=== PATIENT | male | born 1965 | race Two or more races ===

== ENCOUNTER 2020-05-09 09:38 | Outpatient (CLI) | payer BC, SELFPAY ==
[2020-05-09 10:24] LABS: Alanine Aminotransferase 15 U/L (4-50); Albumin Level 4.1 g/dL (3.5-5.1); Alkaline Phosphatase 90 U/L (38-126); Anion Gap 6 mmol/L (8-16); Aspartate Amino Transferase 21 U/L (17-59); Bilirubin,Total 0.5 mg/dL (0.2-1.3); Blood Urea Nitrogen 11 mg/dL (9-20); Calcium 9.5 mg/dL (8.4-10.2); Carbon Dioxide 32 mmol/L (22-30); Chloride 100 mmol/L (98-107); Cholesterol 247 mg/dL (0-200); Estimated Glomerular Filt Rate > 60; Glucose 98 mg/dL (75-110); HDL Direct 60 mg/dL; Potassium 4.6 mmol/L (3.4-5.0); Sodium 138 mmol/L (137-145); Triglycerides 95 mg/dL (<150)
[2020-05-09 10:35] LABS: LDL Cholesterol Direct 152 mg/dL
== END 2020-05-09 09:39 | disposition home or self-care (01) ==
PROVIDERS: PCP Internal Medicine; Visit Provider Internal Medicine
DX: Z13.6 Encounter for screening for cardiovascular disorders (principal); Z51.81 Encounter for therapeutic drug level monitoring; Z79.899 Other long term (current) drug therapy; E78.5 Hyperlipidemia, unspecified
CPT/HCPCS: 36415; 80053; 80061; 84153; G0103

== ENCOUNTER 2020-10-02 15:30 | Outpatient (RCR) | payer BC, SELFPAY ==
--- NOTE | 2020-08-24 17:03 | PTOPEVAL ---
PHYSICAL THERAPY EVALUATION Thank you for referring Grayson Malagon to [facility].? Grayson was evaluated for the dx of left shoulder pain/tendonitis and bursitis. The patient is scheduled to be seen for therapy?2 x/week for 4 weeks. Please review, sign, date and return this plan of care MAICO. I agree with and certify that the following plan of care is medically necessary. Referring Physician Date Referring Provider: Deo Garber DO *PT Outpatient Evaluation Start: 08/24/20 16:16 Freq: Status: Active Protocol: Document 08/24/20 16:16 MLV (Rec: 08/24/20 17:03 MLV [id number]) Therapy Assessment Status Assessment Status Evaluation Evaluation Information Problem Diagnosis left shoulder pain Onset 7 months ago Cause no injury Additional Evaluation Detail Pt had pain at his left shoulder and went to therapy to relieve pain. He completed the therapy and his arm was better. Pt began having pain again about 1 month ago with no injury. 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 Pt has pain at night, affecting sleep, reaching over 80 degrees, lifting, doing ADL's. Pt is left handed but now writes with his right hand due to a hand injury. Previous Treatments Previous Treatments For This Problem had therapy, got better Pain Assessment Timing of Pain Assessment Timing of Pain Assessment Assessment Pain Scale Pain Scale Used Numeric (1 - 10) Self Report Pain Assessment Left Anterior Shoulder(s) Reported Pain Level 0 Pain Description Aching,Tightness Pain Frequency Acute Other Pain Description 5 with minimal movement Greatest Pain Intensity 8 Pain Aggravating Factors Exercise/Activity Pain Behaviors Guarding,Moaning Pain Score Pain Score 0: Self Report Interventions Used Interventions Used By Clinicians Education Pain Relief Interventions Used By Heat,Position Change Patient Upper Extremity Range of Motion General Upper Extremity Range of Motion Gross Upper Extremity Range of Motion shoulder active motion: *right Comments [id number], abduction 153, extension 77, ER 74, IR 80 degrees *left shoulder flexion 110, ab
--- NOTE | 2020-09-17 15:47 | PCPTNOTE ---
Patient called & cancelled scheduled appointment this date due to having to work.
--- NOTE | 2020-10-02 16:10 | PTOPEVAL ---
PHYSICAL THERAPY DISCHARGE Thank you for referring Grayson Malagon to [facility].? The patient has been seen 8 visits for the dx of left shoulder pain. Goals are partially met and peaked. DC PT. Please review, sign, date and return this plan of care MAICO. I agree with and certify the following plan of care is medically necessary. Referring Physician Date Referring Provider: Deo Garber DO *PT Outpatient Discharge Start: 08/24/20 16:16 Freq: Status: Active Protocol: Document 10/02/20 15:27 MLV (Rec: 10/02/20 16:10 MLV [id number]) Therapy Assessment Status Assessment Status Discharge Evaluation Information Problem Diagnosis left shoulder pain Onset 7 months ago Cause no injury Additional Evaluation Detail Patient feels his left shoulder is about 85% better. Patient still has some pain with quick movements, and still has some trouble sleeping due to pain at times. Patient denies any trouble with his exercises and his shoulder feels better after doing them but the relief has peaked. Pain Assessment Pain Scale Pain Scale Used Numeric (1 - 10) Self Report Pain Assessment Left Anterior Shoulder(s) Reported Pain Level 0 Pain Frequency Chronic,Intermittent Other Pain Description sleep pain is 7 out of 10, work activity pain is a 5. Pain Score Pain Score 0: Self Report Interventions Used Pain Relief Interventions Used By Exercise,Heat,Inactivity/Rest, Patient Medication,Position Change Other Alleviating Interventions tylenol prn Upper Extremity Range of Motion General Upper Extremity Range of Motion Gross Upper Extremity Range of Motion *left shoulder flexion 138, Comments abduction 112, extension 79, ER 60, IR 80 degrees with pain for ER. (elevation and extension motions improved since eval) Upper Extremity Muscle Strength Testing General Upper Extremity Strength Reason Not Measured WNL/Left,WNL/Right Gross Upper Extremity Strength Comments continued pain with testing through motion, limiting functional use of shoulder flexion/abduction Palpation Assessment Palpation Palpation no longer tender at left anterior shoulder at AC joint. Specia
== END 2020-10-05 09:31 | disposition home or self-care (01) ==
LOC: ANHPT 15:30
PROVIDERS: PCP Internal Medicine; Referring Provider Internal Medicine; Visit Provider Internal Medicine
DX: M25.512 Pain in left shoulder (principal)
CPT/HCPCS: 97014; 97110; 97140; 97162; G0283

== ENCOUNTER 2023-01-14 07:07 | Outpatient (CLI) | payer OTHER, SELFPAY ==
[2023-01-14 07:53] LABS: Basophils Absolute Auto 0.1 K/mm3 (0.0-0.1); Basophils Percent Auto 1.3 % (0.2-1.2); Eosinophils Absolute Auto 0.1 K/mm3 (0-0.3); Eosinophils Percent Auto 1.8 % (0-4.4); Hematocrit 42.6 % (42.0-52.0); Hemoglobin 13.7 g/dL (14.0-18.0); Immature Granulocyte Absolute 0.02 K/mm3 (0.00-0.031); Immature Granulocyte Percent A 0.4 % (0-0.5); Lymphocytes Absolute Auto 1.71 K/mm3 (0.9-3.2); Lymphocytes Percent Auto 30.6 % (18.3-44.2); Mean Corpuscular HGB Conc 32.2 g/dl (32-36); Mean Corpuscular Hemoglobin 32.1 pg (26-34); Mean Corpuscular Volume 99.8 fl (80-100); Monocytes Absolute Auto 0.6 K/mm3 (0.1-0.6); Monocytes Percent Auto 10.7 % (2.6-8.5); Neutrophils Absolute Auto 3.1 K/mm3 (1.3-6.7); Neutrophils Percent Auto 55.2 % (45.5-73.1); Platelet Count Result 307 k/mm3 (150-375); Red Blood Count 4.27 M/mm3 (4.6-6.20); Red Cell Distribution Width 13.4 % (11.5-14.5); White Blood Count 5.6 K/mm3 (4.5-10.0)
[2023-01-14 07:57] LABS: Alanine Aminotransferase 38 U/L (6-50); Albumin Level 4.1 g/dL (3.5-5.1); Alkaline Phosphatase 83 U/L (38-126); Anion Gap 6 mmol/L (8-16); Aspartate Amino Transferase 38 U/L (17-59); Bilirubin,Total 0.5 mg/dL (0.2-1.3); Blood Urea Nitrogen 9 mg/dL (9-20); Calcium 8.9 mg/dL (8.4-10.2); Carbon Dioxide 26 mmol/L (22-30); Chloride 104 mmol/L (98-107); Cholesterol 309 mg/dL (0-200); Estimated Glomerular Filt Rate > 60; Glucose 119 mg/dL (65-110); HDL Direct 62 mg/dL; Potassium 3.8 mmol/L (3.4-5.0); Sodium 136 mmol/L (137-145); Triglycerides 422 mg/dL (<150)
[2023-01-14 08:08] LABS: LDL Cholesterol Direct 148 mg/dL
[2023-01-14 08:30] LABS: Hemoglobin A1C 5.6 % (<5.7)
== END 2023-01-14 07:08 | disposition home or self-care (01) ==
PROVIDERS: PCP Nurse Practitioner Family; Visit Provider Nurse Practitioner Family
DX: Z00.00 Encounter for general adult medical examination without abnormal findings (principal); E78.2 Mixed hyperlipidemia; R73.01 Impaired fasting glucose; F10.10 Alcohol abuse, uncomplicated; Z79.899 Other long term (current) drug therapy
CPT/HCPCS: 36415; 80053; 80061; 83036; 85025

== ENCOUNTER 2023-07-05 10:00 | Day surgery (SDC) | payer OTHER, SELFPAY ==
[2023-06-21 08:18] VITALS: BMI 29.6
[2023-06-27 10:15] VITALS: BMI 27.2
[2023-07-05 11:21] VITALS: BMI 27.8
[2023-07-05 11:30] VITALS: BP 161/99; PULSE 76; RESP 20; TEMP 36.6; O2SAT 100
[2023-07-05] MEDS: LACTATED RINGERS 1,000 ML 150 ML IV CONT (11:32)
--- NOTE | 2023-07-05 11:38 | WPDANESEPPF ---
Anes - Initial Pre Proc Eval Procedure: Operation Date: 07/05/23 12:30 Proposed Procedures p Screening Colonoscopy - Sergio Rocha MD Date/Time: 07/05/23 11:38 Surgeon: Sergio Rocha MD Pre Op Diagnosis: Neoplasm Screening Patient Data Age: 57 Gender: M Height: 1.8 m Weight: 90.5 kg Last Vital Signs Temp 36.6 C 07/05/23 11:30 Pulse 76 07/05/23 11:30 Resp 20 07/05/23 11:30 BP 161/99 H 07/05/23 11:30 Pulse Ox 100 07/05/23 11:30 O2 Del Method Room Air 07/05/23 11:30 Allergies Allergy/AdvReac Type Severity Reaction Status Date / Time oxycodone AdvReac Mild VOMITING Verified 07/05/23 11:12 Home Medications Medication Instructions Recorded Confirmed Type glatiramer 40 mg/mL subcutaneous 40 mg subcut 3XW 07/12/19 07/05/23 History syringe (Copaxone) baclofen 10 mg tablet 10 mg PO QHS #30 tabs 07/20/20 07/05/23 Rx pantoprazole 40 mg tablet,delayed 40 mg PO DAILY #90 tabs 01/25/21 07/05/23 Rx release rosuvastatin 10 mg tablet 10 mg PO DAILY #90 tabs 01/16/23 07/05/23 Rx Patient hx anesthesia problems: none Family hx anesthesia problems: none Results Review: All pre-operative results and documents have been reviewed as part of the pre-operative evaluation. [facility], [facility] Past Medical History Medical History Alcohol abuse Family history of colon cancer in father Social History Social History Smoking status: Former smoker Alcohol intake: current Alcohol use details: Recently stopped drinking alcohol. Substance use: unknown Substance use type: does not use Living arrangements: with family Spiritual care concerns: No Anes - Eval Final PreProcedure Day of Procedure 07/05/23 11:38 Patient weight: overweight Heart: regular rate and rhythm Lungs: clear to auscultation Airway: Mallampati scale class II Neurological: alert and oriented Last oral intake: >/= 8 hours ASA classification: III Emergent: no Anesthetic plan: proceed Anesthesia type and monitoring: general GIVS and standard monitoring Results Review: All pre-operative results and documents have been reviewed as part of the pre-operative evaluation. Informed Consent: The patient's anesthetic plan and its attendant risks and benefits were discussed with the patient/family/POA. Questions were solicited and answers provided to the satisfaction of the patient/family/POA.
--- NOTE | 2023-07-05 11:48 | PM.HPGS ---
History of Present Illness History of Present Illness Consent: Risks, benefits, and alternatives have been discussed and questions answered. Patient agrees to proceed with procedure. Chief complaint: Neoplasm Screening Narrative: Grayson Malagon is a 57 year old male presents for screening colonoscopy. Patient's current weight appetite and bowel movements are normal. He denies abdominal pain. Patient has had no bleeding. He does report having had a previous colonoscopy 2016 that was unremarkable. Patient reports his father had colon cancer.. Review of Systems Review of Systems: Review of systems noncontributory. [facility] Past Medical History Medical History Alcohol abuse Family history of colon cancer in father Social History Social History Smoking status: Former smoker Alcohol intake: current Alcohol use details: Recently stopped drinking alcohol. Substance use: unknown Substance use type: does not use Living arrangements: with family Spiritual care concerns: No Meds Home Medications and Allergies Home Medications Medication Instructions Recorded Confirmed Type glatiramer 40 mg/mL subcutaneous 40 mg subcut 3XW 07/12/19 07/05/23 History syringe (Copaxone) baclofen 10 mg tablet 10 mg PO QHS #30 tabs 07/20/20 07/05/23 Rx pantoprazole 40 mg tablet,delayed 40 mg PO DAILY #90 tabs 01/25/21 07/05/23 Rx release rosuvastatin 10 mg tablet 10 mg PO DAILY #90 tabs 01/16/23 07/05/23 Rx Allergies Allergy/AdvReac Type Severity Reaction Status Date / Time oxycodone AdvReac Mild VOMITING Verified 07/05/23 11:12 Vital Signs Vital Signs - 24 hr 07/05/23 11:30 Temperature 97.8 F Pulse Rate 76 Respiratory Rate 20 Blood Pressure 161/99 H Pulse Oximetry 100 Oxygen Delivery Room Air Exam Narrative: Physical exam reveals patient to be alert. Vital stable. HEENT exam is unremarkable. Patient is anicteric. Lungs clear to auscultation and percussion. Heart is without murmur or extra sounds. Abdomen bowel sounds are present soft nontender with no organomegaly. Digital external rectal exam normal. Assessment and Plan Assessment and plan (1) Family history of colon cancer in father: Code(s): Z80.0 - Family history of malignant neoplasm of digestive organs Status: Acute Assessment and Plan: Colonoscopy advised at this time and suggested at 5 year intervals given family history of colon cancer.
[2023-07-05] MEDS: SIMETHICONE ORAL SUSPENSION 20 MG/0.3 ML 30 ML BOTTLE 0.6 ML IRRIGATION (12:52)
[2023-07-05 13:03] VITALS: BP 146/100; PULSE 106; RESP 16; O2SAT 98
--- NOTE | 2023-07-05 13:09 | WPDANESPN ---
Anes - Prog Note Post-Op Date/Time: 07/05/23 13:09 Cardiovascular status: normal Respiratory status: normal Airway patency: baseline Mental status: baseline Post-Op hydration status: normal Vital Signs: Last Vital Signs Temp 36.6 C 07/05/23 11:30 Pulse 76 07/05/23 11:30 Resp 20 07/05/23 11:30 BP 161/99 H 07/05/23 11:30 Pulse Ox 100 07/05/23 11:30 O2 Del Method Room Air 07/05/23 11:30 Pain Score (VAS): 0/10 Patient Feedback: Patient satisfied with anesthetic care.
[2023-07-05 13:13] VITALS: BP 151/106; PULSE 88; RESP 16; O2SAT 100
[2023-07-05 13:23] VITALS: BP 160/97; PULSE 68; RESP 18; O2SAT 100
--- NOTE | 2023-07-05 13:38 | SUR.PHASEII ---
PT WAITING FOR DAUGHTER TO ARRIVE FOR DISCHARGE
== END 2023-07-05 13:50 | disposition home or self-care (01) ==
PROVIDERS: Visit Provider Internal Medicine Gastroenterology
PROC: 0DJD8ZZ Inspection of Lower Intestinal Tract, Via Natural or Artificial Opening Endoscopic (ICD-10-PCS; CPT 45378; principal; 2023-07-05 12:30)
DX: Z80.0 Family history of malignant neoplasm of digestive organs (principal); K64.8 Other hemorrhoids
CPT/HCPCS: 45378